=== PATIENT | male | born 1955 | race African-American/Black ===

== ENCOUNTER 2020-12-29 01:04 | Emergency (ER) | payer SELFPAY ==
[2020-12-29] MEDS ORDERED: METHYLPREDNISOLONE 125 MG INJ ONE (02:05)
[2020-12-29] MEDS ORDERED: ALBUTEROL 2.5 MG/3 ML NEB SOL ONE (02:05)
[2020-12-29] MEDS ORDERED: IPRATROPIUM BROM 0.5MG/2.5ML ONE (02:05)
[2020-12-29 02:36] LABS: Absolute Lymphocytes (CBC) 1.7 K/uL (0.7-4.9); Hematocrit 41.9 % (39.6-49.0); Lymphocytes % 26.1 % (15.3-44.8); RBC Red Blood Cell Count 4.51 M/uL (4.33-5.43)
[2020-12-29 02:48] LABS: Protime INR 1.14
[2020-12-29 02:56] LABS: ALT/SGPT 15 U/L (12-78); AST/SGOT 17 U/L (15-37); Albumin 2.8 g/dL (3.4-5.0); Alkaline Phosphatase 120 U/L (45-117); BUN Blood Urea Nitrogen 17 mg/dL (7-18); Bicarbonate 31 mmol/L (21-32); Bilirubin Direct < 0.1 mg/dL (0-0.2); Bilirubin Total 0.2 mg/dL (0.2-1.0); Glucose Level 111 mg/dL (74-106); Magnesium 2.1 mg/dL (1.8-2.4); NT PRO-BNP 31 pg/mL (<125); Potassium 3.6 mmol/L (3.5-5.1); Protein, Total 8.7 g/dL (6.4-8.2); Sodium Level 139 mmol/L (136-145); Troponin (Emerg Dept Use Only) < 0.02 ng/mL (0.0-0.045)
--- NOTE | 2020-12-29 05:21 | EDPHYS ---
Physician Documentation [facility] Name: Tanmay Huynh Age: 65 yrs Sex: Male : 1955 Arrival Date: 12/29/2020 Time: 01:14 Bed 7 Private MD: ED Physician Pastor Pompa HPI: 12/29 01:19 This 65 yrs old Black Male presents to ER via Unassigned with complaints of Breathing cp Difficulty. 01:19 The patient has shortness of breath at rest. Onset: The symptoms/episode began/occurred cp last night. Duration: The symptoms are continuous, and are steadily getting worse. Associated signs and symptoms: Pertinent positives: non-productive cough, Pertinent negatives: chest pain, diaphoresis, fever, numbness in extremities, vomiting. Severity of symptoms: in the emergency department the symptoms have improved mildly. Patient brought to the emergency department by EMS with complaints of shortness of breath started last night. Patient given breathing treatment in route by EMS with some improvement. Patient denies any chest pain denies fever patient does report a history of smoking and quit recently. Patient denies receiving a call with vaccine. Historical: - Allergies: 03:30 No Known Allergies; lp1 - Home Meds: 03:30 Unable to obtain [Active]; lp1 - PMHx: 03:30 hypertension; lp1 - PSHx: 03:30 None; lp1 - Immunization history:: Client reports having NOT received the Covid vaccine. - Social history:: Smoking status: Patient reports the use of cigarette tobacco products, cigars. ROS: 01:22 Eyes: Negative for injury, pain, redness, and discharge. cp 01:22 Constitutional: Negative for body aches, chills, fever, poor PO intake. 01:22 ENT: Positive for sore throat. 01:22 Cardiovascular: Negative for chest pain, edema, palpitations. 01:22 Respiratory: Positive for cough, with no reported sputum, shortness of breath, at rest. wheezing. 01:22 Abdomen/GI: Negative for abdominal pain, nausea, vomiting, and diarrhea. 01:22 Back: Negative for radiated pain. 01:22 Neuro: Negative for altered mental status, headache, numbness, syncope, weakness. 01:22 All other systems are negative. Exam: 01:36 Head/Face: Normocephalic, atraumatic. cp 01:36 Constitutional: The patient appears alert, awake, non-diaphoretic, non-toxic, well developed, well nourished, in obvious distress, mildly distressed. 01:36 Eyes: Periorbital structures: appear normal, Conjunctiva: normal, no exudate, no injection, Sclera: no appreciated abnormality, Lids and lashes: appear normal, bilaterally. 01:36 ENT: External ear(s): are unremarkable, Nose: is normal, Mouth: Lips: moist, Oral mucosa: moist, Posterior pharynx: Airway: no evidence of obstruction, patent. 01:36 Neck: ROM/movement: is normal, is supple, without pain, no range of motions cp limitations, no meningismus, no nuchal rigidity. 01:36 Chest/axilla: Inspection: normal, Palpation: is normal, no crepitus, no tenderness. 01:36 Cardiovascular: Rate: normal, Rhythm: regular, Heart sounds: murmur, not appreciated, cp Edema: is not appreciated, JVD: is not appreciated. 01:36 Respiratory: mild respiratory distress is noted, Respirations: labored breathing, that is mild, shallow respirations, that is mild, Breath sounds: decreased breath sounds, that are moderate, throughout, stridor, is not appreciated, wheezing: that is mild, is heard diffusely. 01:36 Abdomen/GI: Inspection: abdomen appears normal, Bowel sounds: active, all quadrants, Palpation: abdomen is soft and non-tender, in all quadrants. 01:36 Back: pain, is absent, ROM is normal. 01:36 Neuro: Orientation: to person, place \T\ time. Mentation: is normal, Motor: moves all fours, strength is normal, Sensation: is normal. 02:51 ECG was reviewed by the Attending Physician. cp Vital Signs: 02:10 BP 127 / 76; Pulse 94; Resp 14; Temp 98.5(O); Pulse Ox 100% on 2 lpm NC; Weight 65.77 lp1 kg (R); Height 5 ft. 7 in. (170.18 cm); Pain 0/10; 03:00 BP 145 / 77; Pulse 92; Resp 18; Pulse Ox 99% on R/A; lp1 05:00 BP 142 / 82; Pulse 96; Resp 18; Pulse Ox 100% on R/A; lp1 06:39 BP 128 / 74; Pulse 96; Resp 18; Pulse Ox 99% on R/A; lp1 02:10 Body Mass Index 22.71 (65.77 kg, 170.18 cm) lp1 MDM: 01:15 Patient medically screened. pkl 02:00 Differential diagnosis: Anemia CHF exacerbation, Chronic Obstructive Pulmonary Disease cp Myocardial Infarction pneumonia, Pneumothorax pulmonary edema, Pulmonary Embolism Sepsis Unstable Angina COVID-19. 05:18 Data reviewed: vital signs, nurses notes, lab test result(s), EKG, radiologic studies, pkl CT scan, plain films. ED course: Discussed lab and imaging studies with patient. Advised quarantine for 10 days. To return if necessary. 05:21 Patient medically screened. pkl 12/29 01:18 Order name: Basic Metabolic Panel cp 12/29 01:18 Order name: CBC with Diff cp 12/29 01:18 Order name: LFT's cp 12/29 01:18 Order name: Magnesium cp 12/29 01:18 Order name: NT PRO-BNP; Complete Time: 02:57 cp 12/29 01:18 Order name: PT-INR; Complete Time: 03:02 cp 12/29 01:18 Order name: Troponin (emerg Dept Use Only); Complete Time: 02:57 cp 12/29 01:18 Order name: Influenza Screen (a \T\ B); Complete Time: 03:30 cp 12/29 01:18 Order name: Basic Metabolic Panel; Complete Time: 02:57 EDMS 08 02:57 Interpretation: Normal except: GLUC 111. cp 12/29 01:18 Order name: CBC with Automated Diff; Complete Time: 02:46 EDMS 08 02:46 Interpretation: Normal except: MN% 12.4. cp 12/29 01:18 Order name: Liver (Hepatic) Function; Complete Time: 02:57 EDMS 12/29 01:18 Order name: Magnesium; Complete Time: 02:57 EDMS 12/29 01:23 Order name: CRP; Complete Time: 03:14 la1 12/29 01:18 Order name: XRAY Chest (1 view) cp 12/29 01:18 Order name: EKG; Complete Time: 01:18 cp 12/29 01:18 Order name: Cardiac monitoring; Complete Time: 03:29 cp 12/29 01:18 Order name: EKG - Nurse/Tech; Complete Time: 03:35 cp 12/29 01:18 Order name: IV Saline Lock; Complete Time: 03:29 cp 12/29 01:18 Order name: Labs collected and sent; Complete Time: 03:29 cp 12/29 01:18 Order name: O2 Per Protocol; Complete Time: 03:29 cp 12/29 01:18 Order name: O2 Sat Monitoring; Complete Time: 03:29 cp 12/29 01:23 Order name: Strep; Complete Time: 03:30 cp 12/29 03:00 Order name: CT Chest For PE Angio cp 12/29 03:50 Order name: SARS-COV-2 RT PCR; Complete Time: 03:56 EDMS EC:51 Rate is 96 beats/min. Rhythm is regular. DE interval is normal. QRS interval is normal. cp QT interval is normal. T waves are Inverted in lead aVR. Interpreted by me. Reviewed by me. Administered Medications: 02:00 Drug: SOLU-Medrol (methylPrednisoLONE) 125 mg Route: IVP; Site: right forearm; bb 03:35 Follow up: Response: No adverse reaction lp1 02:00 Drug: Albuterol - atroVENT (ipratropium) (3:1) (2.5 mg - 0.5 mg) 3 ml Route: Nebulizer; bb 03:35 Follow up: Response: No adverse reaction lp1 05:31 Drug: AZITHromycin 500 mg Route: IVPB; Infused Over: 1 hrs; Site: right forearm; lp1 06:39 Follow up: IV Status: Completed infusion; IV Intake: 250ml lp1 Disposition: 05:18 Co-signature as Attending Physician, Pastor Pompa MD. pkl Disposition Summary: 12/29/20 05:21 Discharge Ordered Location: Home pkl Problem: new pkl Symptoms: have improved pkl Condition: Stable pkl Diagnosis - Positive Covid 19. Strep pharyngitis pkl Followup: pkl - With: Private Physician - When: 2 - 3 days - Reason: Re-evaluation by your physician Discharge Instructions: - Discharge Summary Sheet pkl Forms: - Medication Reconciliation Form pkl - Thank You Letter pkl - Antibiotic Education pkl - Prescription Opioid Use pkl Prescriptions: - Prednisone 20 mg Oral Tablet - take 1 tablet by ORAL route once daily for 5 days; 5 tablet; Refills: 0, pkl Product Selection Permitted - Zithromax Z-Zeb 250 mg Oral Tablet - take 1 tablet by ORAL route as directed for 5 days Day 1 - take two (2) tablets pkl one time. Day 2, 3, 4 , 5 take one (1) tablet once daily.; 6 tablet; Refills: 0, Product Selection Permitted Signatures: Dispatcher [employer] EDMS Pastor Pompa MD MD pkl Kimberly Haney RN RN bb Jenelle Hendricks RN RN lp1 Gerard Bell, INSEAM TRIMMING MACHINE OPERATOR-C INSEAM TRIMMING MACHINE OPERATOR-Cla1 Luis Hallman PA PA cp Corrections: (The following items were deleted from the chart) 02:39 01:18 CORONAVIRUS+MR.LAB.BRZ ordered. EDMS EDMS 02:47 01:45 Arterial Blood Gas+RC.LAB.BRZ ordered. EDMS EDMS
--- NOTE | 2020-12-29 05:21 | ER ---
Nurse's Notes [facility] Name: Tanmay Huynh Age: 65 yrs Sex: Male : 1955 Arrival Date: 12/29/2020 Time: 01:14 Bed 7 Private MD: Diagnosis: Positive Covid 19. Strep pharyngitis Presentation: 12/29 02:07 Chief complaint: EMS states: they were toned out for report of pt having difficulty bb breathing. 02:10 Coronavirus screen: difficulty breathing, Client presents with at least one sign or bb symptom that may indicate coronavirus-19. Standard/surgical mask placed on the client. Ebola Screen: No symptoms or risks identified at this time. Risk Assessment: Do you want to hurt yourself or someone else? Patient reports no desire to harm self or others. Onset of symptoms was December 29, 2020. 02:10 Method Of Arrival: EMS: [facility] bb 02:10 Acuity: YUNI 3 bb 02:12 Initial Sepsis Screen: Does the patient meet any 2 criteria? No. Patient's initial bb sepsis screen is negative. Does the patient have a suspected source of infection? No. Patient's initial sepsis screen is negative. Triage Assessment: 02:12 Respiratory: Reports shortness of breath labored breathing Onset: The symptoms/episode bb began/occurred yesterday, Historical: - Allergies: 03:30 No Known Allergies; lp1 - Home Meds: 03:30 Unable to obtain [Active]; lp1 - PMHx: 03:30 hypertension; lp1 - PSHx: 03:30 None; lp1 - Immunization history:: Client reports having NOT received the Covid vaccine. - Social history:: Smoking status: Patient reports the use of cigarette tobacco products, cigars. Screenin:08 Abuse screen: Denies threats or abuse. Nutritional screening: No deficits noted. bb Tuberculosis screening: No symptoms or risk factors identified. Fall Risk None identified. Assessment: 02:08 General: Appears in no apparent distress. slender, Behavior is calm, cooperative. bb Neuro: Level of Consciousness is awake, alert, obeys commands, Oriented to person, place, time, situation. Cardiovascular: Capillary refill < 3 seconds Patient's skin is warm and dry. Rhythm is sinus rhythm. Respiratory: Airway is patent Respiratory effort is labored, Respiratory pattern is regular, Breath sounds with wheezes bilaterally. GI: Abdomen is non-distended. Derm: Skin is dry, Skin is normal, Skin temperature is warm. Musculoskeletal: Circulation, motion, and sensation intact. 03:30 Reassessment: Patient returned from CT. lp1 05:00 Reassessment: Patient appears in no apparent distress at this time. Patient and/or lp1 family updated on plan of care and expected duration. Pain level reassessed. Patient denies any respiratory distress. 06:40 Reassessment: Patient appears in no apparent distress at this time. Patient is alert, lp1 oriented x 3, equal unlabored respirations, skin warm/dry/pink. Reports readiness for discharge. Vital Signs: 02:10 BP 127 / 76; Pulse 94; Resp 14; Temp 98.5(O); Pulse Ox 100% on 2 lpm NC; Weight 65.77 lp1 kg (R); Height 5 ft. 7 in. (170.18 cm); Pain 0/10; 03:00 BP 145 / 77; Pulse 92; Resp 18; Pulse Ox 99% on R/A; lp1 05:00 BP 142 / 82; Pulse 96; Resp 18; Pulse Ox 100% on R/A; lp1 06:39 BP 128 / 74; Pulse 96; Resp 18; Pulse Ox 99% on R/A; lp1 02:10 Body Mass Index 22.71 (65.77 kg, 170.18 cm) lp1 ED Course: 01:14 Patient arrived in ED. bb 01:15 Pastor Pompa MD is Attending Physician. pkl 01:16 Luis Hallman PA is PHCP. cp 01:27 Jenelle Hendricks, WEST is Primary Nurse. lp1 01:45 Initial lab(s) drawn, by me, sent to lab. COVID swab sent to lab. Flu and/or RSV swab bb sent to lab. Strep swab sent to lab. Inserted saline lock: 20 gauge in right antecubital area, using aseptic technique. Blood collected. 02:08 Patient has correct armband on for positive identification. Call light in reach. Side bb rails up X 1. Pulse ox on. NIBP on. 02:10 Arm band placed on Patient placed in an exam room, on a stretcher, on pulse oximetry. bb 02:12 Triage completed. bb 02:51 XRAY Chest (1 view) In Process Unspecified. EDMS 03:44 CT Chest For PE Angio In Process Unspecified. EDMS 05:41 No provider procedures requiring assistance completed. lp1 06:40 IV discontinued, No redness/swelling at site. Pressure dressing applied. lp1 Administered Medications: 02:00 Drug: SOLU-Medrol (methylPrednisoLONE) 125 mg Route: IVP; Site: right forearm; bb 03:35 Follow up: Response: No adverse reaction lp1 02:00 Drug: Albuterol - atroVENT (ipratropium) (3:1) (2.5 mg - 0.5 mg) 3 ml Route: Nebulizer; bb 03:35 Follow up: Response: No adverse reaction lp1 05:31 Drug: AZITHromycin 500 mg Route: IVPB; Infused Over: 1 hrs; Site: right forearm; lp1 06:39 Follow up: IV Status: Completed infusion; IV Intake: 250ml lp1 Intake: 06:39 IV: 250ml; Total: 250ml. lp1 Outcome: 05:21 Discharge ordered by . pkl 06:40 Discharged to home ambulatory. lp1 06:40 Condition: good 06:40 Discharge instructions given to patient, Instructed on discharge instructions, follow up and referral plans. medication usage, Demonstrated understanding of instructions, follow-up care, medications, Prescriptions given X 4. 06:50 Patient left the ED. lp1 Signatures: Dispatcher [employer] EDMS Pastor Pompa MD MD pkl Ballard, Brenda RN RN Jenelle Montgomery RN RN lp1 Luis Hallman PA PA cp Corrections: (The following items were deleted from the chart) 03:32 03:00 BP 145 / 77; Pulse 92bpm; Resp 18bpm; Pulse Ox 99% 2 lpm Nasal Cannula; lp1 lp1
[2020-12-29] MEDS ORDERED: NA CHLORIDE 0.9% 250 ML ONE (05:45)
[2020-12-29] MEDS ORDERED: AZITHROMYCIN 500 MG INJ IVPB ONE (05:45)
[2020-12-29 06:56] VITALS: TEMP 98.5
[2020-12-29 07:02] VITALS: BP 128/74; O2SAT 99
--- NOTE | 2020-12-29 08:01 | EKG ---
Test Date: 2020-12-29 Test Time: 02:45:40 Automobile Radiator Mechanic: JUD MEASUREMENT RESULTS: Intervals: Rate: 96 WI: 126 QRSD: 80 QT: 338 QTc: 427 [place]: P: 75 WI: 126 QRS: 50 T: 64 INTERPRETIVE STATEMENTS: Normal sinus rhythm Nonspecific ST abnormality Abnormal ECG Compared to ECG 12/25/1995 10:30:00 ST (T wave) deviation now present Sinus tachycardia no longer present Atrial abnormality no longer present Electronically Signed On 12-29-20 08:00:11 CDT by Manuel Guadalupe
--- NOTE | 2020-12-29 08:35 | RAD REPORT ---
EXAM DESCRIPTION: RAD - Chest Single View - 12/29/2020 2:52 am CLINICAL HISTORY: SOB COMPARISON: <Comparisons> FINDINGS: No evidence of edema or pneumonia. The heart size is within normal limits.No acute osseous abnormality. No significant pleural effusions or pneumothorax. Scoliosis per IMPRESSION: No acute cardiopulmonary disease.
--- NOTE | 2020-12-30 12:08 | RAD REPORT ---
EXAM DESCRIPTION: CT - Chest For Pe Angio - 12/29/2020 7:09 am COMPARISON: None. CLINICAL HISTORY: SOB TECHNIQUE: CT images through the chest with IV contrast using the pulmonary embolus protocol. Multip lanar reformats. Automated exposure control was utilized on this examination as a dose lowering techn ique. FINDINGS: Pulmonary arteries and vascular: Diagnostic quality bolus. No filling defects. Heart and mediastinum: Heart size is normal. No lymphadenopathy. Thyroid gland: Visualized portions are normal. Lungs: Dependent atelectasis. Mild paraseptal emphysema. Airways: There is asymmetric soft tissue in the region of the right larynx. No filling defects otherw ise. No bronchiectasis. Pleura: No pneumothorax. No significant pleural effusion. Subphrenic structures: Within normal limits. Musculoskeletal and soft tissues: Chronic right rib fractures are noted. IMPRESSION: 1. No evidence of pulmonary embolus. 2. Asymmetric soft tissue in the region of the right larynx, partially visualized. Consider further e valuation with CT of the neck with contrast to exclude neoplasm if clinically indicated based on lanie ent history. Electronically signed by: Eliseo Amin MD 12/29/2020 4:00 AM CDT Due to temporary technical issues with the PACS/Fluency reporting system, reports are being signed by the in house radiologist without review as a courtesy to ensure prompt reporting. The interpreting r adiologist is fully responsible for the content of the report.
== END 2020-12-29 06:50 | disposition home or self-care (01) ==
LOC: ER 01:04
DX: U07.1 COVID-19 (principal); J02.0 Streptococcal pharyngitis; I10 Essential (primary) hypertension; Z72.0 Tobacco use
CPT/HCPCS: 36415; 71045; 71275; 80048; 80076; 83735; 83880; 84484; 85025; 85610; 86140; 87081; 87804; 93005; 96365; 96375; 99285; J0456; J2930; J7050; Q9967; U0003

== ENCOUNTER 2021-03-05 18:20 | Emergency (ER) | payer OTHER ==
--- NOTE | 2021-03-05 20:49 | RAD REPORT ---
EXAM DESCRIPTION: RAD - ENTEROSTOMY TUBE CHECK W/CONTR - 03/05/2021 8:41 pm CLINICAL HISTORY: tube placement PEG tube placement COMPARISON: Chest Pa And Lat (2 Views) dated 08/06/2020No comparisons FINDINGS: No fluoroscopy was performed. Two radiographs are submitted. Following contrast injection the second radiograph shows contrast filling the stomach, indicating appropriate PEG tube placement.
--- NOTE | 2021-03-05 20:56 | ER ---
Nurse's Notes [facility] Name: Tanmay Huynh Age: 65 yrs Sex: Male : 1955 Arrival Date: 03/05/2021 Time: 18:30 Bed 26 Private MD: Diagnosis: Gastrostomy complication, unspecified-Displaced Presentation: 03/05 18:31 Chief complaint: Patient states: gastric feeding tube dislodge, pt with open trach oh stoma. Coronavirus screen: Vaccine status:. Ebola Screen: No symptoms or risks identified at this time. Initial Sepsis Screen: Does the patient meet any 2 criteria? No. Patient's initial sepsis screen is negative. Does the patient have a suspected source of infection? No. Patient's initial sepsis screen is negative. Risk Assessment: Do you want to hurt yourself or someone else? Patient reports no desire to harm self or others. Onset of symptoms was March 05, 2021. 18:31 Method Of Arrival: EMS: [facility] [place] 18:31 Acuity: YUNI 2 oh Triage Assessment: 18:39 GI: G-tube dislodge tracheostomy. oh 18:42 General: Appears uncomfortable, Behavior is anxious. oh Historical: - PMHx: 18:34 Hypertension; oh - Immunization history:: Adult Immunizations up to date. - Social history:: Smoking status: Patient denies any tobacco usage or history of. - Family history:: not pertinent. - Hospitalizations: : No recent hospitalization is reported. Screenin:42 Abuse screen: Denies threats or abuse. Nutritional screening: No deficits noted. oh Tuberculosis screening: No symptoms or risk factors identified. Fall Risk None identified. Assessment: 18:41 GI: PEG tube dislodge. 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 oh 20:00 Reassessment: 16 f g-tube at bedside, Dr. Lofton to change. bc5 Vital Signs: 18:31 BP 122 / 70; Pulse 114; Resp 19; Temp 99.7(O); Pulse Ox 100% on R/A; oh 19:27 BP 119 / 81; Pulse 98; Resp 17; Pulse Ox 100% on R/A; Pain 0/10; bc5 19:27 BP 121 / 80; Pulse 79; Resp 18; Temp 98(O); Pulse Ox 100% on R/A; Pain 0/10; bc5 ED Course: 18:30 Patient arrived in ED. oh 18:31 Lyric Soto, RN is Primary Nurse. oh 18:34 Triage completed. oh 18:42 Bed in low position. Call light in reach. Side rails up X 1. oh 18:43 Arm band placed on right wrist. oh 18:58 Rinku Lofton MD is Attending Physician. rn 20:41 PEG Tube Check w/contrast In Process Unspecified. EDMS 21:09 No provider procedures requiring assistance completed. Patient did not have IV access bc5 during this emergency room visit. Administered Medications: No medications were administered Outcome: 20:55 Discharge ordered by . rn 21:13 Patient left the ED. bc5 Signatures: Dispatcher [employer] EDWV Rinku Lofton MD MD rn Corado, Bella, RN RN [facility] Lyric Soto, RN RN oh Corrections: (The following items were deleted from the chart) 18:39 18:34 PMHx: pt denies medical history; oh oh
--- NOTE | 2021-03-05 20:56 | EDPHYS ---
Physician Documentation [facility] Name: Tanmay Huynh Age: 65 yrs Sex: Male : 1955 Arrival Date: 03/05/2021 Time: 18:30 Bed 26 Private MD: ED Physician Rinku Lofton HPI: 03/05 20:25 This 65 yrs old Black Male presents to ER via EMS with complaints of Problem With rn Feeding Tube. 20:25 The patient presents with Feeding tube became displaced. Onset: The symptoms/episode rn began/occurred at 17:00. The symptoms do not radiate. Associated signs and symptoms: none. Pertinent negatives: nausea and vomiting, blood in stools, fever. The symptoms are described as achy, crampy. Modifying factors: The symptoms are alleviated by nothing, the symptoms are aggravated by nothing. Severity of pain: At its worst the pain was mild in the emergency department the pain is unchanged. The patient has experienced similar episodes in the past. The patient has not recently seen a physician. Patient reports feeding tube became displaced around 5 PM. Denies fever. Denies nausea or vomiting. Denies abdominal pain. 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 Has a cancer doctor that he sees for it. Will not allow us to suction or attend to it. Historical: - PMHx: 18:34 Hypertension; oh - Immunization history:: Adult Immunizations up to date. - Social history:: Smoking status: Patient denies any tobacco usage or history of. - Family history:: not pertinent. - Hospitalizations: : No recent hospitalization is reported. ROS: 20:25 Constitutional: Negative for fever, chills, and weight loss, Eyes: Negative for injury, rn pain, redness, and discharge, Cardiovascular: Negative for chest pain, palpitations, and edema, Respiratory: Negative for shortness of breath, cough, wheezing, and pleuritic chest pain, Abdomen/GI: Positive for feeding tube displacement, negative for abdominal pain/vomiting/diarrhea MS/Extremity: Negative for injury and deformity, Skin: Negative for injury, rash, and discoloration, Neuro: Negative for headache, weakness, numbness, tingling, and seizure. Exam: 20:25 Constitutional: This is a well developed, well nourished patient who is awake, alert, rn and in no acute distress. Neck: Tracheostomy noted with small amount of blood around ostomy. Clearing secretions fine, breathing fine. Cardiovascular: Tachycardic, regular no pulse deficits. Respiratory: No increased work of breathing, no retractions or nasal flaring. Abdomen/GI: Soft, nontender. Gastrostomy stoma open and does not appear infected. Stoma does appear to be a little tight for existing 16 Swazi feeding tube Skin: Warm, dry with normal turgor. Normal color with no rashes, no lesions, and no evidence of cellulitis. MS/ Extremity: Pulses equal, no cyanosis. Neuro: Awake and alert, GCS 15 Vital Signs: 18:31 BP 122 / 70; Pulse 114; Resp 19; Temp 99.7(O); Pulse Ox 100% on R/A; oh 19:27 BP 119 / 81; Pulse 98; Resp 17; Pulse Ox 100% on R/A; Pain 0/10; bc5 19:27 BP 121 / 80; Pulse 79; Resp 18; Temp 98(O); Pulse Ox 100% on R/A; Pain 0/10; bc5 Procedures: 20:54 G-tube placement: a 16 Swazi catheter was placed, by the ED physician, Rinku Lofton MD rn Tolerated well, x-ray shows appropriate placement. MDM: 18:58 Patient medically screened. rn 20:54 Differential diagnosis: non-specific abd pain, Feeding tube displacement. Data rn reviewed: vital signs, nurses notes, radiologic studies, plain films, and as a result, I will discharge patient. Test interpretation: by ED physician or midlevel provider: plain radiologic studies, KUB shows appropriate placement and contrast filling the stomach following G-tube replacement. Counseling: I had a detailed discussion with the patient and/or guardian regarding: the historical points, exam findings, and any diagnostic results supporting the discharge/admit diagnosis, radiology results, the need for outpatient follow up, to return to the emergency department if symptoms worsen or persist or if there are any questions or concerns that arise at home. Response to treatment: the patient's symptoms have resolved after treatment, the patient's condition has returned to base line, the patient is now symptom free, and as a result, I will discharge patient. Special discussion: I discussed with the patient/guardian in detail that at this point there is no indication for admission to the hospital. It is understood, however, that if the symptoms persist or worsen the patient needs to return immediately for re-evaluation. 03/05 19:46 Order name: PEG Tube Check w/contrast; Complete Time: 20:54 em 03/05 19:06 Order name: Merylc. Order: please obtain 16F feeding to for replacement rn Administered Medications: No medications were administered Disposition Summary: 03/05/21 20:55 Discharge Ordered Location: Home rn Problem: new rn Symptoms: have improved rn Condition: Stable rn Diagnosis - Gastrostomy complication, unspecified - Displaced rn Followup: rn - With: Private Physician - When: As needed - Reason: Recheck today's complaints, Re-evaluation by your physician Discharge Instructions: - Discharge Summary Sheet rn - Gastrostomy Tube Replacement rn - Gastrostomy Tube Home Guide, Adult rn Forms: - Medication Reconciliation Form rn - Thank You Letter rn - Antibiotic yarn comber - Prescription Opioid Use rn Signatures: Dispatcher [employer] EDMS Rinku Lofton MD MD rn Harriott, [place], RN RN oh Corrections: (The following items were deleted from the chart) 18:39 18:34 PMHx: pt denies medical history; oh oh
[2021-03-05 21:48] VITALS: O2SAT 100
[2021-03-05 21:50] VITALS: BP 121/80; TEMP 98
== END 2021-03-05 21:13 | disposition home or self-care (01) ==
LOC: ER 18:20
DX: K94.29 Other complications of gastrostomy (principal)
CPT/HCPCS: 49465; 99283